=== PATIENT | male | born 1960 | race Caucasian/White ===

== ENCOUNTER 2018-01-18 08:53 | Emergency (ER) | payer SELFPAY ==
[~2018-01-18] VITALS: Ht 172.7 cm; Wt 54.5 kg
[~2018-01-18 08:53] MED LIST: NO HOME MEDICATIONS; ZITHROMAX Z PA250 MG PO
[2018-01-18 08:56] VITALS: TEMP 98.7
[2018-01-18 09:34] LABS: MEAN CELL VOLUME 96 fl (80.0-100.0); MEAN CORPUSCULAR HEMOGLOBIN 34 pg (27.0-31.0); MEAN CORPUSCULAR HGB CONC 36 g/dl (33.0-37.0); MEAN PLATELET VOLUME 8.6 fl (7.4-10.4); PLATELET COUNT 348 K/mm3 (130-400); RED BLOOD COUNT 3.82 M/mm3 (4.20-5.60); REDCELL DISTRIBUTION WIDTH-CV 12.7 % (11.5-14.5)
[2018-01-18 09:35] LABS: HEMATOCRIT 36.6 % (42.0-52.0)
[2018-01-18 09:53] LABS: ALANINE AMINOTRANSFERASE 27 U/L (21-72); ALBUMIN 4.3 gm/dL (3.5-5.0); ALKALINE PHOSPHATASE 101 U/L (50-136); ANION GAP 13 mmol/L (7-16); AST,SGOT 52 U/L (15-37); BILIRUBIN,TOTAL 0.6 mg/dL (0.0-1.0); BLOOD UREA NITROGEN 7 mg/dL (9-20); C-REACTIVE PROTEIN 8.3 mg/dL (0.0-0.9); CALCIUM 8.9 mg/dL (8.4-10.2); CARBON DIOXIDE 21 mmol/L (22-30); CHLORIDE 95 mmol/L (98-107); CREATININE, serum 0.64 mg/dL (0.66-1.25); GLUCOSE 88 mg/dL (74-106); POTASSIUM 3.8 mmol/L (3.4-5.0); SODIUM 130 mmol/L (137-145); TOTAL PROTEIN 7.8 gm/dL (6.4-8.2)
[2018-01-18 09:54] LABS: BAND 7 % (0-10); BASOPHIL 1 % (0-2); EOSINOPHIL 1 % (0-4); LYMPHOCYTE 25 % (20.0-51.0); METAMYELOCYTE 2 % (0-0); NEUTROPHILS 57 % (42.0-75.2)
[2018-01-18 09:55] LABS: PLATELET ESTIMATE NORMAL (NORMAL); STOMATOCYTE 1+
[2018-01-18 10:10] LABS: TROPONIN-I < 0.012 ng/mL (0.000-0.034)
[2018-01-18] MEDS ORDERED: LEVAQUIN 5500 MG/TA1 PO (10:22)
[2018-01-18 10:44] VITALS: BP 139/90; PULSE 99
== END 2018-01-18 10:51 | disposition home or self-care (01) ==
LOC: COL.ER 08:53
PROVIDERS: Physician Assistant
DX: R06.00 Dyspnea, unspecified (principal); F17.210 Nicotine dependence, cigarettes, uncomplicated
CPT/HCPCS: J7030